=== PATIENT | female | born 1985 | race Caucasian/White ===

== ENCOUNTER 2019-12-04 11:29 | Emergency (ER) | payer BC ==
[~2019-12-04] VITALS: Ht 157.5 cm; Wt 125.0 kg
--- NOTE | 2019-12-04 12:31 | NUR ---
Pt laying on her stomach on gurney, moving her legs in the air, talking on her cell phone.
[2019-12-04] MEDS ORDERED: ketorolac tromethamine 15mg/ml inj. IM ONE (13:00)
[2019-12-04] MEDS ORDERED: orphenadrine citrate 60mg/2ml inj. IM ONE (13:00)
[2019-12-04 13:23] LABS: BASOPHILS # (AUTO) 0.1 X10'3 (0-0.2); BASOPHILS % (AUTO) 0.6 % (0-1); EOSINOPHILS # (AUTO) 0.2 X10'3 (0-0.9); EOSINOPHILS % (AUTO) 1.6 % (0-6); HEMATOCRIT 44.3 % (35.0-45.0); HEMOGLOBIN 14.8 g/dl (12.0-16.0); LYMPHOCYTES # (AUTO) 3.3 X10'3 (1.1-4.8); LYMPHOCYTES % (AUTO) 31.7 % (21-51); MEAN CORPUSCULAR HEMOGLOBIN 28.7 PG (27.0-31.0); MEAN CORPUSCULAR HGB CONC 33.3 g/dL (33.0-36.5); MEAN CORPUSCULAR VOLUME 86.3 FL (78-98); MEAN PLATELET VOLUME 7.6 FL (7.4-10.4); MONOCYTES # (AUTO) 0.9 X10'3 (0-0.9); MONOCYTES % (AUTO) 8.7 % (2-12); NEUTROPHILS % (AUTO) 57.4 % (42-75); PLATELET COUNT 296 X10'3 (140-440); RED BLOOD COUNT 5.14 X10'6 (4.20-5.60); RED CELL DISTRIBUTION WIDTH 15.3 % (11.5-14.5); WHITE BLOOD COUNT 10.5 X10'3 (4.5-11.0)
--- NOTE | 2019-12-04 13:34 | NUR ---
Pt ambulated to MRI with tech.
[2019-12-04 13:39] LABS: ALANINE AMINOTRANSFERASE 21 U/L (12-78); ALBUMIN 3.8 G/DL (3.4-5.0); ALKALINE PHOSPHATASE 57 IU/L (46-116); ANION GAP 10 (8-16); ASPARTATE AMINO TRANSFERASE 19 U/L (10-37); BILIRUBIN,TOTAL 0.4 MG/DL (0.1-1.0); BLOOD UREA NITROGEN 16 MG/DL (7-18); BUN/CREATININE RATIO 20.3 (6.6-38.0); CALCIUM 9.6 MG/DL (8.5-10.1); CHLORIDE 106 MMOL/L (99-107); CREATININE 0.79 MG/DL (0.40-0.90); GLUCOSE 85 MG/DL (70-104); POTASSIUM 4.3 MMOL/L (3.5-5.1); SODIUM 143 MMOL/L (135-145); TOTAL CARBON DIOXIDE 27.3 MMOL/L (24-32); TOTAL PROTEIN 7.7 G/DL (6.4-8.2); eGFR 84 ML/MIN
[2019-12-04 13:45] LABS: URINE HCG NEGATIVE (NEG)
[2019-12-04 14:01] LABS: CLARITY,URINE CLEAR (Clear); COLOR,URINE YELLOW (Yellow); GLUCOSE, URINE NEGATIVE (Neg); KETONES,URINE NEGATIVE (Neg); LEUKOCYTE ESTERASE ,URINE NEGATIVE (Neg); NITRITES, URINE NEGATIVE (Neg); OCCULT BLOOD,URINE NEGATIVE (Neg); PROTEIN,URINE NEGATIVE (Neg); UROBILINOGEN,URINE 0.2 E.U/dL (0.2-1.0)
[2019-12-04 14:02] LABS: UA COLLECTION TYPE CLN CATCH MIDSTREAM
--- NOTE | 2019-12-04 14:10 | NUR ---
Pt returned from MRI with tech.
--- NOTE | 2019-12-04 14:40 | NUR ---
Pt sleeping, respirations unlabored, NAD.
--- NOTE | 2019-12-04 16:30 | NUR ---
Went to pt's room to check on her and update vitals. Pt not in room, gown on bed, clothes and belongings gone. Pt told admitting about 20 minutes ago that she was going to her car to get something and would be right back. They asked if she told her nurse and she told them yes. Checked with other staff, she did not let anyone know she was leaving. JULIUS Cardenas aware. This RN will try and call the pt.
--- NOTE | 2019-12-04 16:39 | NUR ---
Called pt and she stated she was in the parking lot getting something to eat and she will be back in shortly.
--- NOTE | 2019-12-04 16:45 | NUR ---
Pt returned from her car to the ED room.
--- NOTE | 2019-12-04 18:13 | NUR ---
Updated pt on plan of care and that we are waiting for the neurosurgeon at [facility] to look at her info. Pt verbalized understanding and denies any needs at this time.
[2019-12-04] MEDS ORDERED: dexamethasone 4mg/ml inj IM SCH (20:00)
--- NOTE | 2019-12-04 20:15 | NUR ---
Called report to Cesar at [facility] at the [facility], [address]. Let him know that we do not have transportation arranged yet and that we will call him back once we know about transportation. Cesar can be reached at [phone].
[2019-12-04 21:05] VITALS: BP 127/76
== END 2019-12-04 21:09 | disposition short-term general hospital (02) ==
LOC: ER 11:30
DX: M54.5 Low back pain (principal); R20.0 Anesthesia of skin; M62.838 Other muscle spasm; G89.29 Other chronic pain
CPT/HCPCS: 36415; 72148; 80053; 81003; 81025; 85025; 96372; 99285; J1100; J1885; J2360

== ENCOUNTER 2021-03-01 08:34 | Emergency (ER) | payer BC ==
[~2021-03-01] VITALS: Ht 162.6 cm; Wt 104.5 kg
[2021-03-01] MEDS ORDERED: dexamethasone sod phosphate 10mg/ml inj IV STA (08:59)
[2021-03-01] MEDS ORDERED: morphine 4 MG/ML inj SYRINge IV PRN (09:00)
[2021-03-01] MEDS ORDERED: CefTRIAXone/D5W-Rocephin 1gm 50 ML IV ONE (09:00)
[2021-03-01] MEDS ORDERED: ondansetron/PF 4mg/2ml inj IV ONE (09:00)
[2021-03-01] MEDS ORDERED: normal saline 1000ML IV soln IVB ONE (09:00)
[2021-03-01] MEDS ORDERED: iohexol 300mg/ml 100ml inj. ONE (09:55)
[2021-03-01 10:12] LABS: BASOPHILS % (AUTO) 0.1 % (0-1); EOSINOPHILS % (AUTO) 0.1 % (0-6); HEMATOCRIT 42.5 % (35.0-45.0); HEMOGLOBIN 14.1 g/dl (12.0-16.0); LYMPHOCYTES # (AUTO) 1.4 X10'3 (1.1-4.8); MEAN CORPUSCULAR HEMOGLOBIN 28.6 PG (27.0-31.0); MEAN CORPUSCULAR HGB CONC 33.1 g/dL (33.0-36.5); MEAN CORPUSCULAR VOLUME 86.3 FL (78-98); MEAN PLATELET VOLUME 8.2 FL (7.4-10.4); MONOCYTES # (AUTO) 2.4 X10'3 (0-0.9); MONOCYTES % (AUTO) 8.4 % (2-12); NEUTROPHILS # (AUTO) 24.2 X10'3 (1.8-7.7); NEUTROPHILS % (AUTO) 86.4 % (42-75); PLATELET COUNT 261 X10'3 (140-440); RED BLOOD COUNT 4.93 X10'6 (4.20-5.60); RED CELL DISTRIBUTION WIDTH 15.3 % (11.5-14.5)
[2021-03-01 10:28] LABS: ALANINE AMINOTRANSFERASE 14 U/L (12-78); ALBUMIN 3.6 G/DL (3.4-5.0); ALKALINE PHOSPHATASE 63 IU/L (46-116); ANION GAP 12 (8-16); ASPARTATE AMINO TRANSFERASE 13 U/L (10-37); BILIRUBIN,TOTAL 0.5 MG/DL (0.1-1.0); BLOOD UREA NITROGEN 7 MG/DL (7-18); BUN/CREATININE RATIO 9.2 (6.6-38.0); CALCIUM 8.9 MG/DL (8.5-10.1); CHLORIDE 101 MMOL/L (99-107); CREATININE 0.76 MG/DL (0.40-0.90); GLUCOSE 112 MG/DL (70-104); POTASSIUM 3.4 MMOL/L (3.5-5.1); SODIUM 138 MMOL/L (135-145); TOTAL CARBON DIOXIDE 25.5 MMOL/L (24-32); eGFR 87 ML/MIN
[2021-03-01 10:39] LABS: ALBUMIN/GLOBULIN RATIO 0.9 (1.1-1.5); TOTAL PROTEIN 7.8 G/DL (6.4-8.2)
[2021-03-01 11:07] LABS: TOTAL CELLS COUNTED 100
[2021-03-01 11:08] LABS: PLATELET ESTIMATE NORMAL; POIKILOCYTOSIS FEW
[2021-03-01] MEDS ORDERED: CLINDAMYCIN/D5W 900mg/50ml 50 ML IV ONE (12:30)
[2021-03-01] MEDS ORDERED: LIDOcaine Viscous 15ml cup MM PRN (12:30)
[2021-03-01] MEDS ORDERED: LIDO20SO16 PO (13:24)
[2021-03-01] MEDS ORDERED: PRED20TA PO (13:24)
[2021-03-01] MEDS ORDERED: CLIN150C2 PO (13:24)
--- NOTE | 2021-03-01 14:06 | NUR ---
Pt given and understands d/c instructions. Ambulatory with a slow steady gait.
[2021-03-01 14:08] VITALS: BP 105/60
== END 2021-03-01 14:16 | disposition home or self-care (01) ==
LOC: ER 08:35
DX: J36 Peritonsillar abscess (principal); J03.90 Acute tonsillitis, unspecified; Z20.822 Contact with and (suspected) exposure to COVID-19; G89.29 Other chronic pain; M54.5 Low back pain; Z79.899 Other long term (current) drug therapy
CPT/HCPCS: 42700; 70491; 80053; 85007; 85025; 87635; 96365; 96367; 96375; 99285; C9803; J0696; J1100; J2270; J2405; J7030; Q9967; 99283; 99284; J3490